=== PATIENT | female | born 1985 | race Caucasian/White ===

== ENCOUNTER 2023-01-15 11:42 | Emergency (ER) | payer MEDICARE, MEDICAID, SELFPAY ==
[2023-01-15 11:44] VITALS: BP 101/73; PULSE 66; RESP 18; TEMP 36.4; O2SAT 97; BMI 27.4
--- NOTE | 2023-01-15 11:55 | CT_ITS ---
WS: [id number] CT HEAD TECHNIQUE: Noncontrast CT of the head obtained from the skullbase to the vertex. CLINICAL INFORMATION: Altered LOC COMPARISON: None. DLP: 2022.[address] scans at [facility] use at least one of these dose optimization techniques: automated e xposure control; mA and/or kV adjustment per patient size (includes targeted exams where dose is matc hed to clinical indication); or iterative reconstruction. FINDINGS: No evidence of intracranial hemorrhage or mass effect. Ventricular system and basal cisterns are singh nt. No extra-axial fluid collections. No evidence of mass or mass effect. Normal lemons-white different iation. Paranasal sinuses and mastoid air cells are well aerated. .Normal visualized soft tissues. IMPRESSION: 1. No evidence of intracranial hemorrhage or mass effect. 2. No acute intracranial findings.
--- NOTE | 2023-01-15 11:56 | PC.PHAR ---
pt unable to verify due to ams
[2023-01-15 12:15] LABS: Basophils # 0.1 10^3/uL (0.0-0.1); Basophils % 0.6 %; Eosinophils # 0.2 10^3/uL (0.0-0.8); Eosinophils % 1.9 %; Hematocrit 35.4 % (36-47); Lymphocytes # 1.8 10^3/uL (0.8-4.8); Lymphocytes % 21.2 %; Mean Corpuscular HGB Conc 32.5 g/dL (30-55); Mean Corpuscular Hemoglobin 29.9 pg (27-33); Mean Corpuscular Volume 92.2 fl (85-98); Mean Platelet Volume 9.8 fL (7.4-10.4); Monocytes # 0.7 10^3/uL (0.2-0.9); Monocytes % 8.3 %; Neutrophils # 5.61 10^3/uL (1.8-7.7); Neutrophils % 67.9 %; Nucleated Red Blood Cells % 0 %; Platelet Count 357 10^3/cmm (157-399); Red Blood Count 3.84 10^6/uL (3.85-5.65); Red Cell Distribution Width 12.6 % (12.1-15.1); White Blood Count 8.27 10^3/uL (3.29-11.43)
[2023-01-15 12:28] LABS: Alanine Aminotransferase 13 U/L (0-33); Albumin Level 3.6 g/dL (3.5-5.2); Alkaline Phosphatase 65 U/L (35-105); Anion Gap 15.8 (5-19); Aspartate Amino Transferase 12 U/L (0-32); Blood Urea Nitrogen 12 mg/dL (6-20); Calcium 9.1 mg/dL (8.5-10.5); Carbon Dioxide 22 mmol/L (22-29); Chloride 109 mmol/L (98-107); Globulin 2.6 g/dL (1.3-4.6); Glomerular Filtration Rate 81.2 mL/min (90-130); Glucose 96 mg/dL (65-115); Osmolality Calculated 296 mOsm/kg (285-295); Potassium 3.8 mmol/L (3.5-5.1); Salicylate 0.7 mg/dL (3-10); Sodium 143 mmol/L (136-145); Total Bilirubin 0.2 mg/dL (0.15-1.2); Total Protein 6.2 g/dL (6.6-8.7)
[2023-01-15 12:30] LABS: Acetaminophen < 5.0 ug/mL (10-30); Alcohol Level < 10 mg/dL (0-10)
--- NOTE | 2023-01-15 12:35 | PC.NURSE ---
1000 ml bag of NS fluids started by EMS, I spoke with Dr. Seals and he said to just run those fluids wide open and give the patient the whole bag before starting what he ordered we would reassess the patient.
[2023-01-15 12:54] LABS: HCG Qualitative Urine. Negative (Negative)
[2023-01-15 13:23] LABS: Add Urine Microscopic? YES; Bilirubin Urine Neg (Negative); Blood Urine Neg (Negative); Glucose Urine UA Norm (Normal); Ketones Urine Negative (Negative); Leukocyte Esterase Urine 2+ (Negative); Nitrate Urine Negative (Negative); Protein Urine Neg (Negative); Urine Appearance Hazy (CLEAR); Urine Color Straw (Yellow); Urobilinogen Urine Neg (Negative); pH Urine 5 (5-7)
[2023-01-15 13:24] LABS: Add Urine Culture? Yes; Bacteria Urine 1+ /hpf; RBC Urine 0-4 /hpf (0-2); Squamous Epithelial Cell Urine 0-4 /hpf (0-5); WBC Urine 15-25 /hpf (0-5)
[2023-01-15 13:33] LABS: Amphetamines Screen Urine Negative (Negative); Barbiturates Screen Urine Negative (Negative); Benzodiazepines Screen Urine Negative (Negative); Cocaine Screen Urine Negative (Negative); Opiate Screen Urine Negative (Negative); PCP Screen Urine Negative (Negative); THC Screen Urine Positive (Negative)
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
== END 2023-01-15 14:17 | disposition home or self-care (01) ==
PROVIDERS: Emergency Provider Emergency Medicine
DX: R41.82 Altered mental status, unspecified (principal); T42.6X5A Adverse effect of other antiepileptic and sedative-hypnotic drugs, initial encounter
CPT/HCPCS: 36415; 70450; 80053; 80306; 80307; 81001; 81025; 85025; 87086; 99284

== ENCOUNTER 2023-04-21 10:10 | Emergency (ER) | payer MEDICARE, MEDICAID, SELFPAY ==
[2023-04-21 10:17] VITALS: BP 139/87; PULSE 93; RESP 16; TEMP 36.7; O2SAT 97; BMI 34.0
--- NOTE | 2023-04-21 10:32 | ED_ITS ---
HPI - Extremity Problem General: Chief complaint: Extremity Injury, Lower Stated complaint: right knee pain Time Seen by Provider: 04/21/23 10:13 History of Present Illness: 37 F female who presents with right knee pain. The patient states she has had numerous knee surgeries completed, last was March of this past year, all of her surgeries were done in [place]. Patient moved here 5 months ago and has not establish care with a primary care provider or an orthopedic surgeon. She states over the past 2 days, she has had increasing pain in the right knee. She has been having to wear her knee brace again because her knee feels unstable and she feels as if something came undone inside the knee. She has had both ACL and PCL repair as well as patellar repair. She denies any falls or any acute trauma. She states the pain is severe. MD Complaint: extremity pain Associated symptoms: Deny fever(s) Review of Systems General: Reports: Other (negative except per HPI) Const: Denies: fever(s) Physical Exam Const: COMMON NORMALS: no acute distress GENERAL APPEARANCE: cooperative and well developed HENMT: COMMON NORMALS: normocephalic HEAD & SCALP: normocephalic Eye: COMMON NORMALS: conjunctivae normal CONJUNCTIVA: Yes conjunctivae normal Extremity: RIGHT LOWER EXTREMITY: Yes knee joint (multiple scars on right knee; no significant swelling or deformity) Right knee: Yes inspection OTHER: bruising over the lateral proximal tibial plateau region. Patellar tendon is intact. Medial and lateral stability intact. Patient is unable to tolerate anterior drawer or posterior drawer sign due to discomfort. No significant joint effusion. Course Vital Signs: Vital signs: Vital Signs Temperature 98.0 F 04/21/23 10:17 Pulse Rate 93 04/21/23 10:17 Respiratory Rate 16 04/21/23 10:17 Blood Pressure 139/87 04/21/23 10:17 Pulse Oximetry 97 04/21/23 10:17 MDM - Extremity (Nontraumatic) Medical Decision Making Patient presents with right knee pain, atraumatic but she has had numerous knee surgeries, the last being over a year ago. Do not feel that the patient would benefit from x-rays today as this is most likely an internal derangement type injury. Patellar tendon is intact. There is no significant deformity. Feel the patient will need orthopedic surgery follow-up with elective MRI as an outpatient. No radiology studies performed this visit Discharge Plan Discharge Patient Disposition: Home Clinical Impression: Chronic pain of right knee Condition: Stable Prescriptions: New hydrocodone-acetaminophen 5-325 mg tablet 1 tab PO Q4H PRN (Reason: pain) Qty: 14 0RF Anaprox DS 550 mg tablet 550 mg PO Q12H Qty: 30 0RF Discharge Orders: Discharge ED (Routine); Ordered 04/21/23 Ordered By: Oriana Bradshaw Referrals: Raimundo Brewster DO [Physician] - 4-7 days Discharge Diet: Advance as tolerated Discharge Activity: Increase activity as tolerated Patient Instructions: Opioid Safety, Pain Management Activity Restrictions/Additional Instructions: Wear your brace as needed. Ice to the affected area and keep your leg elevated to minimize the swelling. Take Anaprox twice daily. You can take the [place] every 4-6 hours as needed for severe pain. Return if you are having increased pain, weakness, numbness. Follow-up first available with the orthopedic surgeon. Coding Level of Care Code ED [place] Tower Loader for Fahadg Fwafzal Time Spent (min) 20
[2023-04-21] MEDS: HYDROcodone-acetaminophen 10-325 mg Tablet 1 TAB PO (10:36)
--- NOTE | 2023-04-21 10:54 | PC.PHAR ---
[facility]-AMLODIPINE 5 MG DAILY, VALSARTAN/HCTZ 160-25 DAILY. [facility] GABAPENTIN 600 MG 4 TIMES DAILY, CLONAZEPAM 0.5MG 3 TIMES DAILY, AMBIEN 10 MG AT BEDTIME, PHENTERMINE 37.5MG DAILY, ALBUTEROL INH. EVERY 6 HOURS PRN. BOTH PHARMACIES IN [facility]
--- NOTE | 2023-04-21 13:45 | W.ED.EXTPRO ---
HPI - Extremity Problem General: Chief complaint: Extremity Injury, Lower Stated complaint: right knee pain Time Seen by Provider: 04/21/23 10:13 History of Present Illness: duplicate document; please see other Course Vital Signs: Vital signs: Vital Signs Temperature 98.0 F 04/21/23 10:17 Pulse Rate 93 04/21/23 10:17 Respiratory Rate 16 04/21/23 10:17 Blood Pressure 139/87 04/21/23 10:17 Pulse Oximetry 97 04/21/23 10:17 MDM - Extremity (Nontraumatic) Medical Decision Making please see other documen No radiology studies performed this visit Discharge Plan Discharge Patient Disposition: Home Clinical Impression: Chronic pain of right knee Condition: Stable Prescriptions: New hydrocodone-acetaminophen 5-325 mg tablet 1 tab PO Q4H PRN (Reason: pain) Qty: 14 0RF Anaprox DS 550 mg tablet 550 mg PO Q12H Qty: 30 0RF hydrocodone-acetaminophen 5-300 mg tablet 1 tab PO Q4H PRN (Reason: pain) Qty: 14 0RF Anaprox DS 550 mg tablet 550 mg PO Q12H Qty: 30 0RF No Action gabapentin 600 mg Tablet 600 mg PO QID clonazepam 0.5 mg Tablet 0.5 mg PO TID phentermine 37.5 mg Tablet 18.75 mg PO DAILY Rx Instructions: must administer 30 minutes before or 1-2 hours after breakfast amlodipine 5 mg Tablet 5 mg PO DAILY Ambien 10 mg Tablet 10 mg PO BEDTIME albuterol sulfate 90 mcg/actuation Hfa Aerosol Inhaler 1 inh INHALATION QID PRN (Reason: Shortness Of Breath) valsartan-hydrochlorothiazide 160-25 mg Tablet 1 tab PO DAILY Discharge Orders: Discharge ED (Routine); Ordered 04/21/23 Ordered By: Oriana Bradshaw Referrals: Raimundo Brewster DO [Physician] - 4-7 days Discharge Diet: Advance as tolerated Discharge Activity: Increase activity as tolerated Patient Instructions: Opioid Safety, Pain Management Activity Restrictions/Additional Instructions: Wear your brace as needed. Ice to the affected area and keep your leg elevated to minimize the swelling. Take Anaprox twice daily. You can take the [place] every 4-6 hours as needed for severe pain. Return if you are having increased pain, weakness, numbness. Follow-up first available with the orthopedic surgeon. Coding Level of Care Code ED Supervisor Real Estate Office for Chuyita Olivas
== END 2023-04-21 10:47 | disposition home or self-care (01) ==
PROVIDERS: Emergency Provider Emergency Medicine
DX: G89.29 Other chronic pain (principal); M25.561 Pain in right knee
CPT/HCPCS: 99283

== ENCOUNTER 2023-05-21 13:05 | Emergency (ER) | payer MEDICARE, MEDICAID, SELFPAY ==
[2023-05-21 13:09] VITALS: BP 118/86; PULSE 71; RESP 18; TEMP 36.5; O2SAT 100
--- NOTE | 2023-05-21 14:04 | XR_ITS ---
WS: [id number] Right foot, 3 views, 05/21/2023 Clinical Data: fall/trauma Comparison: None. Findings: No fractures or dislocations are seen. No bone destruction or erosion is noted. The joint spaces and soft tissues are normal. Impression: Negative right foot.
--- NOTE | 2023-05-21 14:04 | XR_ITS ---
WS: [id number] Right knee, 3 views, 05/21/2023 Clinical Data: fall/trauma Comparison: None. Findings: No fractures or dislocations are seen. The medial and lateral joint spaces are slightly narrow. There is a spur of the medial femoral condyle and medial tibial plateau. The patella is intact without spu rring. The soft tissues are unremarkable. There is an anterior cruciate ligament repair. Impression: 1. Minimal osteoarthritis of the right knee with joint space narrowing and small spurs. 2. Anterior cruciate ligament repair. Kellgren-Elvin Classification: grade 2 (minimal): definite osteophytes and possible joint space na rrowing
--- NOTE | 2023-05-21 14:05 | ED_ITS ---
HPI - Extremity Injury (Lower) General: Chief Complaint: Extremity Injury, Lower Stated Complaint: Right Knee Time Seen by Provider: 05/21/23 13:46 Source: patient Mode of arrival: ambulatory Limitations: no limitations History of Present Illness: Patient is a 37-year-old female presents to ED today with a complaint of right knee and right foot pain that she sustained 2 days ago after tripping over her dog and ramming the knee into a cement block. She is ambulatory here without assistance. She does have a knee immobilizer on the right knee. She reports 7 previous knee surgeries for internal derangement injuries. MD complaint: knee injury Onset (ago): day(s) Injury: Right: knee and foot Place: home Severity: moderate Relieving factors: immobilization Exacerbating factors: weight bearing, movement and palpation Context: fall and direct blow Associated symptoms: Reports no associated symptoms Other symptoms: none Treatments prior to arrival: other (knee immobilizer) Review of Systems Musc: Reports: joint pain (R knee, R foot); Denies: neck pain, back pain, joint redness or joint warmth Neuro: Denies: numbness in extremities, weakness in extremities, sensory changes or difficulty walking [facility] ED Female Reproductive History: Date of last menstrual period: 04/16/23 Physical Exam Const: COMMON NORMALS: no acute distress, patient oriented x3, no limitations, alert and well nourished Extremity: COMMON NORMALS: capillary refill normal, no clubbing, cyanosis or edema, no calf tenderness and no pedal edema GENERAL: Yes normal exam except as noted RIGHT LOWER EXTREMITY: Yes knee joint (TTP anterior lateral knee joint; edema) Right knee: Yes ROM (limited secondary to pain) and Yes neurovascular exam (normal) and Yes foot & digits Right foot and digits: Yes inspection (normal gross inspection), Yes palpation (mild tenderness medially), Yes ROM (normal) and Yes neurovascular exam (normal) Neuro: COMMON NORMALS: patient oriented x3, moves all extremities, no focal motor deficits, no sensory deficits noted and gait normal SENSORIUM/ORIENTATION: Yes alert Course Vital Signs: Vital signs: Vital Signs Temperature 97.7 F 05/21/23 13:09 Pulse Rate 71 05/21/23 13:09 Respiratory Rate 18 05/21/23 13:09 Blood Pressure 118/86 05/21/23 13:09 Pulse Oximetry 100 05/21/23 13:09 Oxygen Delivery Me thod Room Air 05/21/23 13:09 MDM - Extremity Injury (Lower) Medical Decision Making XRs negative. She is requesting a primary care referral for follow-up. This will be provided. She already has a knee immobilizer she can wear as needed. She has crutches at home. Recommend RICE therapy. Will prescribe her anti- inflammatories. Medical Records I reviewed the patient's medical records. All radiology interpretation(s) finalized by discharge Discharge Plan Discharge Patient Disposition: Home Clinical Impression: Fall on same level from tripping, Injury of knee, right Condition: Stable Prescriptions: New diclofenac sodium 50 mg tablet,delayed release (DR/EC) 50 mg PO Q12H PRN (Reason: pain) Qty: 20 0RF Discontinued naproxen sodium [Anaprox DS] 550 mg tablet 550 mg PO Q12H Qty: 30 0RF No Action hydrocodone-acetaminophen 5-325 mg tablet 1 tab PO Q4H PRN (Reason: pain) Qty: 14 0RF Anaprox DS 550 mg tablet 550 mg PO Q12H Qty: 30 0RF gabapentin 600 mg Tablet 600 mg PO QID clonazepam 0.5 mg Tablet 0.5 mg PO TID phentermine 37.5 mg Tablet 18.75 mg PO DAILY Rx Instructions: must administer 30 minutes before or 1-2 hours after breakfast amlodipine 5 mg Tablet 5 mg PO DAILY Ambien 10 mg Tablet 10 mg PO BEDTIME albuterol sulfate 90 mcg/actuation Hfa Aerosol Inhaler 1 inh INHALATION QID PRN (Reason: Shortness Of Breath) valsartan-hydrochlorothiazide 160-25 mg Tablet 1 tab PO DAILY hydrocodone-acetaminophen 5-300 mg tablet 1 tab PO Q4H PRN (Reason: pain) Qty: 14 0RF Discharge Orders: Discharge ED (Routine); Ordered 05/21/23 Ordered By: Skylar Gaines Activity Restrictions/Additional Instructions: As we discussed you can continue wearing your knee brace. Crutches as needed for ambulation. Ice and elevate the extremity. We will have case management reach out to you next week to help set you up with your follow-up appointment. You may use the prescription anti-inflammatories to help with pain. Coding Level of Care Code ED Durable Medical Equipment Repairer for Chuyita Olivas
[2023-05-21 14:53] VITALS: BP 128/84; PULSE 77; RESP 16; O2SAT 96
== END 2023-05-21 14:53 | disposition home or self-care (01) ==
PROVIDERS: Emergency Provider Physician Assistant
DX: S89.91XA Unspecified injury of right lower leg, initial encounter (principal); W01.0XXA Fall on same level from slipping, tripping and stumbling without subsequent striking against object, initial encounter
CPT/HCPCS: 73562; 73630; 99283

== ENCOUNTER → 2024-03-17 12:09 | Outpatient (BNVA) | payer MEDICARE, MEDICAID, SELFPAY | PROVIDERS: PCP Family Medicine Adult Medicine; Visit Provider Registered Nurse Neonatal Intensive Care | DX: M25.561 Pain in right knee (principal) | CPT/HCPCS: 73562 ==

== ENCOUNTER → 2024-03-27 13:03 | Outpatient (BNVA) | payer MEDICARE, MEDICAID, SELFPAY | PROVIDERS: PCP Family Medicine Adult Medicine; Visit Provider Emergency Medicine | DX: R50.9 Fever, unspecified (principal) | CPT/HCPCS: 87400 ==

== ENCOUNTER → 2024-05-16 09:00 | Outpatient (BNVA) | payer MEDICARE, MEDICAID, SELFPAY | PROVIDERS: PCP Family Medicine; Visit Provider Family Medicine | DX: I10 Essential (primary) hypertension (principal); M17.5 Other unilateral secondary osteoarthritis of knee; G62.9 Polyneuropathy, unspecified; E66.9 Obesity, unspecified; F41.9 Anxiety disorder, unspecified; F32.A Depression, unspecified | CPT/HCPCS: 80053; 80061; 82607; 84443; 85025 ==

== ENCOUNTER 2024-06-18 13:04 | Emergency (ER) | payer MEDICARE, MEDICAID, SELFPAY ==
[2024-06-18 13:08] VITALS: BP 122/86; PULSE 78; TEMP 37; O2SAT 97; BMI 37.8
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
[2024-06-18] MEDS: dexamethasone 10 mg/mL INJ IM (14:25)
[2024-06-18 14:36] VITALS: BP 108/60; PULSE 72; O2SAT 98
--- NOTE | 2024-06-18 14:36 | ECG_ITS ---
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 Measurements Intervals [place] Rate: 82 P: 49 RI: 141 QRS: 43 QRSD: 86 T: 9 QT: 372 QTc: 437 Interpretive Statements SINUS RHYTHM INTERPRETATION BASED ON A DEFAULT AGE OF 40 YEARS No previous ECG available for comparison Electronically Signed On 06-19-2024 18:51:51 CDT by Piper Savage M.D. [email or web address]
== END 2024-06-18 14:36 | disposition home or self-care (01) ==
PROVIDERS: Emergency Provider Emergency Medicine; PCP Family Medicine
DX: S40.861A Insect bite (nonvenomous) of right upper arm, initial encounter (principal); W57.XXXA Bitten or stung by nonvenomous insect and other nonvenomous arthropods, initial encounter; I10 Essential (primary) hypertension; F17.220 Nicotine dependence, chewing tobacco, uncomplicated
CPT/HCPCS: 93005; 96372; 99284; J1100

== ENCOUNTER → 2024-08-22 11:39 | Outpatient (BNVA) | payer MEDICARE, MEDICAID, SELFPAY | PROVIDERS: PCP Family Medicine; Visit Provider Family Medicine | DX: Z12.4 Encounter for screening for malignant neoplasm of cervix (principal); Z72.51 High risk heterosexual behavior | CPT/HCPCS: 87491; 87591; 87661 ==

== ENCOUNTER → 2024-09-11 16:36 | Outpatient (BNVA) | payer MEDICARE, MEDICAID, SELFPAY | PROVIDERS: PCP Family Medicine; Visit Provider Family Medicine | DX: R10.11 Right upper quadrant pain (principal); R50.9 Fever, unspecified | CPT/HCPCS: 80053; 85025 ==

== ENCOUNTER 2024-09-21 07:51 | Outpatient (CLI) | payer MEDICARE, MEDICAID, SELFPAY ==
--- NOTE | 2024-09-21 07:45 | US_ITS ---
WS: [id number] RIGHT UPPER QUADRANT ULTRASOUND HISTORY: RUQ abd pain/n/v/d; r/o cholecystitis COMPARISON: None available. Liver: 14.9 cm in length. Normal size liver and echogenicity. No bile duct dilatation or mass. Portal Vein: Normal hepatopetal flow with monophasic waveform. Gallbladder: Normally distended gallbladder with no stones or wall thickening. CBD: 0.5 cm Pancreas: Limited visualization of the pancreas. No abnormality identified. Right kidney: 9.4 cm in length. Normal size and echogenicity. No hydronephrosis or mass. Aorta and IVC: Unremarkable abdominal aorta and IVC. No ascites. US/US abdomen limited 62413 IMPRESSION: 1. Normal gallbladder. 2. Normal common bile duct. 3. No acute RIGHT upper quadrant abnormality.
== END 2024-09-21 07:52 | disposition home or self-care (01) ==
LOC: RAD 07:51
PROVIDERS: PCP Family Medicine; Visit Provider Family Medicine
DX: R10.11 Right upper quadrant pain (principal)
CPT/HCPCS: 76705

== ENCOUNTER 2024-10-11 20:09 | Emergency (ER) | payer MEDICARE, MEDICAID, SELFPAY ==
[2024-10-11] VITALS (7 sets, daily range): BP systolic 101–130; BP diastolic 81–86; PULSE 85–120; RESP 22; TEMP 36.7; O2SAT 96–100; BMI 36.6
--- NOTE | 2024-10-11 20:50 | CTR_ITS ---
PROCEDURE INFORMATION: Exam: CT Abdomen And Pelvis With Contrast Exam date and time: 10/11/2024 10:24 PM Age: 39 years old Clinical indication: Abdominal pain; Flank; Right TECHNIQUE: Imaging protocol: Computed tomography of the abdomen and pelvis with contrast. Radiation optimization: All CT scans at this facility use at least one of these dose optimization techniques: automated exposure control; mA and/or kV adjustment per patient size (includes targeted exams where dose is matched to clinical indication); or iterative reconstruction. Contrast material: OMNI 350; Contrast volume: 100 ml; Contrast route: INTRAVENOUS (IV); COMPARISON: US abdomen limited 62413 09/21/2024 8:04 AM RADIATION DOSE METRICS: Total DLP (mGy-cm): 821.55 FINDINGS: Liver: Normal. No mass. Gallbladder and biliary ducts: Normal. No calcified stones. No ductal dilation. Pancreas: Normal. No ductal dilation. Spleen: Calcified splenic granulomas. The spleen measures 14.2 cm AP. Adrenal glands: Normal. No mass. Kidneys and ureters: Normal. No hydronephrosis. Stomach and bowel: Sigmoid diverticulosis without evidence of acute diverticulitis. No evidence of bowel obstruction. Appendix: No evidence of appendicitis. Intraperitoneal space: Unremarkable. No free air. No significant fluid collection. Vasculature: Unremarkable. No abdominal aortic aneurysm. Lymph nodes: Unremarkable. No enlarged lymph nodes. Urinary bladder: Unremarkable as visualized. Reproductive: Likely involuting corpus luteum in the left ovary. Uterus is unremarkable. No suspicious adnexal mass. Bones/joints: Unremarkable. No acute fracture. Soft tissues: Unremarkable. CT/CT abdomen pelvis w con* [id number] IMPRESSION: 1. No acute findings. 2. Splenomegaly. 3. Sigmoid diverticulosis without diverticulitis.
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
[2024-10-11] MEDS: ondansetron 2 mg/ML SDV 2 mL 8 MG IVP (21:10)
[2024-10-11] MEDS: HYDROmorphone 0.5 MG/0.5 ML INJ 1 MG IVP (21:11)
[2024-10-11 21:19] LABS: Hematocrit 38.2 % (36-47); Hemoglobin 13.20 g/dL (11.27-16.99); Mean Corpuscular HGB Conc 34.6 g/dL (30-55); Mean Corpuscular Hemoglobin 29.2 pg (27-33); Mean Corpuscular Volume 84.5 fl (85-98); Nucleated Red Blood Cells % 0 %; Platelet Count 408 10^3/cmm (157-399); Red Blood Count 4.52 10^6/uL (3.85-5.65); White Blood Count 11.55 10^3/uL (3.29-11.43)
[2024-10-11 21:34] LABS: Glucose Urine UA Negative (Normal); Nitrate Urine Negative (Negative); Specific Gravity, Urine 1.012 (1.005-1.030)
[2024-10-11 21:36] LABS: Alanine Aminotransferase 15 U/L (0-33); Albumin Level 4.0 g/dL (3.5-5.2); Alkaline Phosphatase 77 U/L (35-105); Anion Gap 16.6 (5-19); Aspartate Amino Transferase 20 U/L (0-32); Blood Urea Nitrogen 14 mg/dL (6-20); Calcium 9.4 mg/dL (8.5-10.5); Carbon Dioxide 24 mmol/L (22-29); Chloride 101 mmol/L (98-107); Creatinine Clr Calc Pharmacy 99.8664; Globulin 3.1 g/dL (1.3-4.6); Glucose 112 mg/dL (65-115); Lipase 15 U/L (13-60); Osmolality Calculated 287 mOsm/kg (285-295); Potassium 3.6 mmol/L (3.5-5.1); Sodium 138 mmol/L (136-145); Total Protein 7.1 g/dL (6.6-8.7)
[2024-10-11 21:37] LABS: Lactic Sepsis W/Reflex 1.4 mmol/L (0.5-2.2)
[2024-10-11 21:41] LABS: HCG, Serum Qual Negative (Negative)
[2024-10-11] MEDS: iohexol 350 mg/mL 500 mL Btl (per mL) IV (22:25)
--- OUTSIDE RECORDS SUMMARY | 2024-10-11 23:06 | XMS_ITS | Encounter Summary ---
Author Organization [facility] Address [address] [place] [address] Care Team Providers Care Global Program Director Name Role Phone Ramirez Samayoa MD Primary Care Provider + Encounter Details Date Type Department Care Team (Late st Contact Info) Description 10/03/2024 External Device Data [place] ABSTRACTION Provider, Abstract NO ADDRESS ON FILE Social History Tobacco Use Types Packs/Day Years Used Date Smoking Tobacco: Never Smokeless Tobacco: Current Chew Comments Unknown Sex and Gender Information Value Date Recorded Sex Assigned at Not on file Legal Sex Female 9:30 AM CDT Gender Identity Not on file Sexual Orientation Not on file documented as of this encounter Plan of Treatment Not on file documented as of this encounter Visit Diagnoses Not on filedocumented in this encounter Care Teams Global Program Director Relationship Specialty Start Date End Date Ramirez Samayoa MD [address] [place] [phone] PCP - General Family Practice 08/12/23 documented as of this encounter
--- OUTSIDE RECORDS SUMMARY | 2024-10-11 23:06 | XMS_ITS | Clinical Summary ---
Author Organization [facility] Address [address] [place] [address] Phone Care Team Providers Care Ordnance Engineering Technician Name Role Phone Ramirez Samayoa MD Primary Care Provider + Allergies Active Allergy Reactions Criticality Noted Date Comments Ciprofloxacin Anaphylaxis High 07/12/2023 Diclofenac Other (See Comments) 07/12/2023 Reaction to other medication Medications amLODIPine (NORVASC) 10 mg tablet Take 10 mg by mouth daily. Active gabapentin (NEURONTIN) 400 mg capsule Take 400 mg by mouth 3 times daily. Active clonazePAM (KlonoPIN) 0.5 mg Tablet Take 0.5 mg by mouth 2 times daily. Active albuterol (PROVENTIL,VENTOL IN) 2.5 mg/0.5 mL Solution for Nebulization Take 2.5 mg by inhalation every 4 hours as needed for Shortness of Breath. Active valsartan-hydroCH LOROthiazide (DIOVAN HCT) 160-25 mg tablet Take 1 Tablet by mouth daily. for blood pressure 4 Active EPINEPHrine (EPIPEN) 0.3 mg/0.3 mL Auto-Injector 4 Active azelastine (ASTELIN) 137 mcg/actuation nasal spray SPRAY TWO SPRAYS in each nostril TWICE DAILY NEEDED allergies/edgar estion. 4 Active Miscellaneous Medical Supply Functional ACL brace 1 Each 4 Active traMADoL (ULTRAM) 50 mg tabletIndications :Arthritis of right knee Take 1 Tablet (50 mg) by mouth every 6 hours as needed for Pain. 15 Tablet 4 Active Active Problems No known active problems Encounters Date Type Department Care Team Description 10/03/2024 External Device Data [facility] ABSTRACTION Provider, Abstract 09/13/2024 External Device Data [facility] Provider, Abstract 09/13/2024 External Device Data [facility] Provider, Abstract 08/22/2024 External Device Data [facility] Provider, Abstract 08/15/2024 External Device Data [facility] Provider, Abstract 07/25/2024 External Device Data [facility]STRACTION Provider, Abstract 07/19/2024 External Device Data [facility]STRACTION Provider, Abstract 07/18/2024 External Device Data [facility] ABSTRACTION Provider, Abstract from Last 3 Months Social History Tobacco Use Types Packs/Day Years Used Date Smoking Tobacco: Never Smokeless Tobacco: Current Chew Tobacco Cessation:Ready to Q uit: Not Asked; Counseling Given: Not Answered Comments Unknown Sex and Gender Information Value Date Recorded Sex Assigned at Not on file Legal Sex Female 9:30 AM CDT Gender Identity Not on file Sexual Orientation Not on file Last Filed Vital Signs Vital Sign Reading Time Taken Comments Blood Pressure 132/92 10/12/2023 9:38 AM CDT Pulse - - Temperature - - Respiratory Rate - - Oxygen Saturation - - Inhaled Oxygen Concentration - - Weight 94.7 kg (208 lb 12.8 oz) 10/12/2023 9:38 AM CDT Height 157.5 cm (5' 2 ) 10/12/2023 9:38 AM CDT Body Mass Index 38.19 10/12/2023 9:38 AM CDT Plan of Treatment Health Maintenance Due Date Last Done Comments Pre-Diabetes and Diabetes Screening 1986 HPV VACCINES (1 - 3-dose series) 2001 DTAP/TDAP/TD VACCINES (1 - Tdap) 2005 HEPATITIS B VACCINES (1 of 3 - 19+ 3-dose series) 05/31 HPV/Cotest (21-29) 06/27/2007 CERVICAL CANCER SCREENING 2016 HPV/Cotest (30-65) 2016 PAP SMEAR 2016 INFLUENZA VACCINE (#1) 2024 Insurance MEDICAID [place] MEDICARE PART A AND B Care Teams Ordnance Engineering Technician Relationship Specialty Start Date End Date Ramirez Samayoa MD [address] [facility] [address] [place] [id number] PCP - General Family Practice 08/12/23
--- OUTSIDE RECORDS SUMMARY | 2024-10-11 23:06 | XMS_ITS | Patient Health Record ---
Author Organization [facility] Address [address] [facility] [address] [place] [address] Care Team Providers Care Greige Goods Marker Name Role Phone MELIA FENG APN Primary Care Provider Magalie Sharma Unavailable [phone] Allergies Allergen (clinical drug ingredient) Drug/Non Drug Allergy documented on EMR Reaction Allergy Type Onset Date Status ciprofloxacin Cipro Unknown Drug Allergy Act sofía Reason For Referral No Information Medications Medication SIG (Take, Route, Frequency, Duration) Notes Start Date End Date Status clonazePAM Active Gabapentin Active Effexor Active Problems Problem Type SNOMED Code ICD Code Onset Dates Problem Status W/U Status Risk Notes Problem Irregular menstrual bleeding (N92.6) Active confirmed Plan Of Treatment No Information Insurance Providers Payer Name Payer Address Payer Phone Subscriber Number Group Number Insured Name Patient Relationship to Insured Coverage Start Date Coverage End Date [place]ST[place] [employer]EVEN CR[employer] OF STATE BLUE [address] [place] [address] [id number] No Pineda Self - patient is the insured Medical (General) History Medical History History ICD Code Anxiety disorder Depression back problems Surgical History Surgery Date(Month/Year) right knee arthroscopy x2
[2024-10-11] MEDS: HYDROcodone-acetaminophen 10-325 mg Tablet 1 TAB PO (23:08)
== END 2024-10-11 23:13 | disposition home or self-care (01) ==
PROVIDERS: Emergency Provider Emergency Medicine; PCP Family Medicine
DX: R10.9 Unspecified abdominal pain (principal); F17.220 Nicotine dependence, chewing tobacco, uncomplicated; I10 Essential (primary) hypertension
CPT/HCPCS: 36415; 74177; 80053; 81001; 83605; 83690; 84703; 85025; 86140; 87040; 96361; 96374; 96375; 99285; J1171; J2405; J7030; J9999

== ENCOUNTER 2024-10-18 07:21 | Outpatient (CLI) | payer MEDICARE, MEDICAID, SELFPAY ==
--- NOTE | 2024-10-18 07:40 | ECG_ITS ---
[facility]: 2024-10[facility]18 Pat Name: No Pineda Department: Room: Gender: Female Psychiatric Therapist: : 1985 Requested By: Noni Holden Order Number: [id number] Wilma MD: SARAH SIMON Interpretive Statements Lung unchanged pre/post procedure; Intraprocedure shortess of breath; Symptoms resoled by discharge NOTE: Please note that this is the electrocardiogram portion of the Lexiscan/Sestamibi stress test. The perfusion scan will be documented separately. DATA: Baseline heart rate was 59 beats per minute. Baseline blood pressure was 109/64 millimeters of mercury. Target heart rate was 182. Maximum heart rate achieved was 99. which was 54% of the predicted target heart rate. Maximum blood pressure was 112/70 millimeters of mercury. The reason for ending the test was completion of the protocol. The patient did not experience any symptoms. ELECTROCARDIOGRAM: BASELINE: Sinus rhythm. Normal axis. Otherwise, no ST-T changes suggestive of ischemia noted. No arrhythmia noted. EXERCISE: After Lexiscan injection, no ST-T changes suggestive of ischemic noted. No arrhythmia noted. CONCLUSION: Please note due to baseline abnormality of the EKG specificity and sensitivity of the EKG portion of LexiScan MIBI stress test will be low 1. EKG not suggestive of ischemia 2. Lexiscan injection unremarkable. 3. Perfusion scan will be documented separately. Electronically Signed On 11-11-2024 13:58:33 CDT by SARAH SIMON [email or web address]
--- NOTE | 2024-10-18 07:40 | NMCV_ITS ---
NM marleny perf SPECT r/s* [id number] White, No Age: 39 Gender: F : 1985 Exam Date: 10/18/2024 08:33 Ordering Phys: Noni Johnson MD Technologist: MARTINE Bernard Exam Location: [facility] Indications: cp STRESS TEST Please see separate stress test report in [facility] for full findings IMAGE PROTOCOL Rest/Stress 1 Lexiscan Day Radiopharmaceutical Dose (mCi) Administration Site Administered by Rest: Tc-99m 10.9 IV Coty Bolanos, GRAVE CLEANER Sestamibi Stress:Tc-99m 32.6 IV Coty Harrygle, GRAVE CLEANER Sestamibi Rest: 18-Oct-2024 60 Discovery 630 Stress: 18-Oct-2024 30 Discovery 630 0.4mg Lexiscan. Images obtained in supine and prone position. SPECT RESULTS Technical Quality: Good Raw Data Analysis: Normal Image Corrections: No attenuation or motion correction applied Summed Stress Score: 0 Summed Rest Score: 0 Summed Difference Score: 0 PERFUSION FINDINGS SPECT images demonstrate homogeneous tracer distribution throughout the myocardium. FUNCTIONAL RESULTS (calculated via Gated SPECT) Stress Image LV EF (%): 71 Stress EDV (mL):87 TID: 1.35 Stress ESV (mL):25 FUNCTIONAL FINDINGS: There is normal left ventricular systolic function. TID ratio is elevated which could be secondary to left ventricular hypertrophy/subendocardial ischemia however cannot rule out multivessel disease which could be option in the presence of increased TID IMPRESSIONS Myocardial perfusion imaging is normal. Kimberly Zapata MD (Electronically Signed) Final Date: 18 October 2024 12:40 S
[2024-10-18 07:41] VITALS: BMI 36.2
--- NOTE | 2024-10-18 07:42 | PC.NURSE ---
The patient does not have a history of hysterectomy or tubal and is having normal periods every 28-30 days. When asked if she agreed to a test she stated that she is lesbian and would rather not . She did agree to sign a test declination waiver. This was sent to medical records to be scanned in.
[2024-10-18 09:10] VITALS: BP 106/70; PULSE 76
== END 2024-10-18 07:22 | disposition home or self-care (01) ==
LOC: CDL 07:25
PROVIDERS: PCP Family Medicine; Visit Provider Family Medicine
DX: R07.9 Chest pain, unspecified (principal); R93.1 Abnormal findings on diagnostic imaging of heart and coronary circulation
CPT/HCPCS: 36415; 78452; 93017; 96374; A9500; J2785

== ENCOUNTER 2024-10-20 09:21 | Outpatient (CLI) | payer MEDICARE, MEDICAID, SELFPAY ==
--- NOTE | 2024-10-20 10:00 | NM_ITS ---
WS: [id number] NUCLEAR MEDICINE HIDA SCAN CLINICAL INFORMATION: RUQ abd pain; CT and US neg TECHNIQUE: Following intravenous administration of 8.6 mCi of technetium 99m mebrofenin, images of the abdomen were obtained over the course of 60 minutes. Next, gallbladder ejection fraction was determined by obtaining preprandial and one-hour postprandial images of the gallbladder following oral ingestion of Ensure. FINDINGS: Normal hepatic uptake at 5 minutes. Normal hepatic excretion. Normal common bile duct and small bowel activity. Small contracted gallbladder is visualized by 60 minutes. No evidence of acute cholecystitis. Ejection fraction not able to be calculated due to small contracted gallbladder NM/NM hepatobiliary w phar* [id number] IMPRESSION: 1. No evidence of acute cholecystitis. 2. Normal common bile duct and small bowel activity.
--- NOTE | 2024-10-20 11:46 | XRR_ITS ---
PROCEDURE INFORMATION: Exam: XR Thoracic Spine Exam date and time: 10/20/2024 11:57 AM Age: 39 years old Clinical indication: Pain in thoracic spine; Additional info: Back pain TECHNIQUE: Imaging protocol: Radiologic exam of the thoracic spine. Views: 3 views. COMPARISON: CT abdomen pelvis w con* [id number] 10/11/2024 10:24 PM FINDINGS: Bones/joints: Vertebral body heights, disc spaces and alignment appear normal. No fractures are identified. Soft tissues: Unremarkable. Heart/Mediastinum: Large calcified mediastinal lymph nodes are present. Paraspinal soft tissues otherwise are unremarkable. XR/XR thoracic spine 3V* [id number] IMPRESSION: No acute abnormality identified.
--- NOTE | 2024-10-20 11:46 | XRR_ITS ---
PROCEDURE INFORMATION: Exam: XR Lumbosacral Spine Exam date and time: 10/20/2024 11:57 AM Age: 39 years old Clinical indication: Low back pain TECHNIQUE: Imaging protocol: Radiologic exam of the lumbosacral spine. Views: 2 or 3 views. COMPARISON: CT abdomen pelvis w con* [id number] 10/11/2024 10:24 PM FINDINGS: Bones/joints: Normal. No acute fracture. Normal alignment. Soft tissues: Unremarkable. XR/XR lumbar spine 2-3V* [id number] IMPRESSION: No acute findings.
== END 2024-10-20 09:22 | disposition home or self-care (01) ==
LOC: RAD 09:23
PROVIDERS: PCP Family Medicine; Visit Provider Family Medicine
DX: M54.6 Pain in thoracic spine (principal); R10.11 Right upper quadrant pain; M54.50 Low back pain, unspecified
CPT/HCPCS: 72072; 72100; 78227; A9537

== ENCOUNTER → 2024-11-10 15:35 | Outpatient (BNVA) | payer MEDICARE, MEDICAID, SELFPAY | PROVIDERS: PCP Family Medicine; Visit Provider Family Medicine | DX: Z12.4 Encounter for screening for malignant neoplasm of cervix (principal) | CPT/HCPCS: 87624 ==

== ENCOUNTER → 2024-11-24 08:56 | Outpatient (BNVA) | payer MEDICARE, MEDICAID, SELFPAY | PROVIDERS: PCP Family Medicine; Visit Provider Student in an Organized Health Care Education/Training Program | DX: K21.9 Gastro-esophageal reflux disease without esophagitis (principal); R12 Heartburn | CPT/HCPCS: 99204 ==

== ENCOUNTER 2024-12-07 06:32 | Day surgery (SDC) | payer MEDICARE, MEDICAID, SELFPAY ==
[2024-12-07 06:50] VITALS: BP 129/82; PULSE 71; RESP 18; TEMP 36.2; O2SAT 96; BMI 34.5
[2024-12-07 06:56] LABS: OR HCG Qualitative Urine Negative (Negative)
--- NOTE | 2024-12-07 07:23 | W.PM.OPSUD ---
Surgery/Procedure H&P Update DATE OF PROCEDURE: December 07, 2024 DATE H&P PERFORMED: 11/24/24 H&P UPDATE INFORMATION: I have reviewed H&P completed within last 30 days, I have examined patient prior to procedure, No changes to prior documentation and Risks and benefits of the procedure reviewed PLANNED PROCEDURE: Operation Date: 12/07/24 08:00 Proposed Procedures p EGD EGD with Biopsy [id number] K21.9(Not Applicable) - Eber Jj MD
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
[2024-12-07 07:55] VITALS: BP 134/76; PULSE 79; RESP 18; TEMP 36.4; O2SAT 96
[2024-12-07 08:06] VITALS: BP 129/80; PULSE 61; RESP 16; O2SAT 96
[2024-12-07 08:15] VITALS: BP 120/76; PULSE 62; RESP 16; O2SAT 97
--- NOTE | 2024-12-07 08:23 | ANE.PACU2 ---
Inpatient post-anesthesia follow up: Airway intact: Yes Vital signs: Temperature 97.5 F Pulse Rate 62 Respiratory Rate 16 Blood Pressure 120/76 Pulse Oximetry 97 Oxygen Delivery Me thod Room Air Oxygen Flow Rate Fraction of Inspir ed Oxygen Hydration adequate: Yes Nausea and vomiting: No Pain level: 1 Mental status: Baseline
== END 2024-12-07 08:24 | disposition home or self-care (01) ==
PROVIDERS: Student in an Organized Health Care Education/Training Program; PCP Family Medicine; Visit Provider Student in an Organized Health Care Education/Training Program
PROC: 0DJ08ZZ Inspection of Upper Intestinal Tract, Via Natural or Artificial Opening Endoscopic (ICD-10-PCS; principal; 2024-12-07 08:00)
DX: R12 Heartburn (principal); K29.70 Gastritis, unspecified, without bleeding; I10 Essential (primary) hypertension; K21.9 Gastro-esophageal reflux disease without esophagitis; E66.01 Morbid (severe) obesity due to excess calories; Z68.34 Body mass index [BMI] 34.0-34.9, adult; F41.9 Anxiety disorder, unspecified; F17.220 Nicotine dependence, chewing tobacco, uncomplicated; K59.00 Constipation, unspecified
CPT/HCPCS: 43239; 81025; 88305; J2704; J7030

== ENCOUNTER → 2024-12-28 10:22 | Outpatient (BNVA) | payer MEDICARE, MEDICAID, SELFPAY | PROVIDERS: PCP Family Medicine; Visit Provider Student in an Organized Health Care Education/Training Program | DX: Z09 Encounter for follow-up examination after completed treatment for conditions other than malignant neoplasm (principal); R03.0 Elevated blood-pressure reading, without diagnosis of hypertension | CPT/HCPCS: 99213 ==

== ENCOUNTER → 2025-01-15 10:04 | Outpatient (BNVA) | payer MEDICARE, MEDICAID, SELFPAY | PROVIDERS: PCP Family Medicine; Visit Provider Family Medicine | DX: R10.11 Right upper quadrant pain (principal); R10.31 Right lower quadrant pain; R11.10 Vomiting, unspecified | CPT/HCPCS: 80053; 85025; 86003; 86008 ==

== ENCOUNTER → 2025-02-08 11:37 | Outpatient (BNVA) | payer MEDICARE, MEDICAID, SELFPAY | PROVIDERS: PCP Family Medicine; Visit Provider Family Medicine | DX: R10.11 Right upper quadrant pain (principal) | CPT/HCPCS: 80053; 85025; 86140 ==

== ENCOUNTER 2025-02-21 10:37 | Outpatient (CLI) | payer MEDICARE, MEDICAID, SELFPAY ==
--- NOTE | 2025-02-21 11:00 | CT_ITS ---
WS: [id number] CT ABDOMEN AND PELVIS NONCONTRAST HISTORY: periumbilical and RUQ pain after cholecystectomy., Gallbladder surgery December 2024. TECHNIQUE: Imaging performed through the abdomen and pelvis. Coronal and sagittal reformats are submitted. All CT scans at [facility] [place] use at least one of these dose optimization techniques: automated exposure control; mA and/or kV adjustment per patient size (includes targeted exams where dose is matched to clinical indication); or iterative reconstruction. DLP: 550.07 mGy.cm COMPARISON: 10/11/2024 Lower thorax: Lung bases are clear. Visualized heart is normal. No hiatal hernia. Liver: Normal size liver. No mass or bile duct dilatation. Gallbladder: Surgically absent. No cystic collection at the gallbladder fossa or adjacent to the liver. There is a focus of increased density in the gallbladder fossa closely associated with the common bile duct. This may be related to the surgical procedure. No dilatation of the common bile duct therefore this is probably not a stone. Pancreas: Normal size and attenuation. Normal pancreatic duct. No pancreatitis or mass. Spleen: Normal size with granulomata. Adrenal glands: Normal. No mass. Right kidney: Normal size kidney with no mass or hydronephrosis. Left kidney: Normal size kidney with no mass or hydronephrosis. Aorta: Normal abdominal aorta, no aneurysm or atherosclerosis. No free fluid, intraperitoneal air or significant lymphadenopathy. GI tract: Normal appearance of the stomach and small bowel. Normal appendix. Mild sigmoid diverticulosis without acute diverticulitis. No GI tract obstruction. Abdominal wall: There is a soft tissue tract through the abdominal wall from the prior surgery. There is a new well-circumscribed high density nodule measuring 8 mm in the RIGHT abdominal wall which may be is a small residual hematoma or a small cyst. Benign in appearance. Pelvis: No free fluid. Normal urinary bladder. Osseous structures: Unremarkable. CT/CT abdomen pelvis wo con [id number] IMPRESSION: 1. Status post cholecystectomy. 2. Tiny focus of increased density in the gallbladder fossa closely associated with the common bile duct is probably postsurgical. The common bile duct is no t dilated. 3. No apparent complications from the laparoscopic cholecystectomy are identif ied. 4. No GI tract obstruction. 5. No ascites or biloma.
== END 2025-02-21 10:38 | disposition home or self-care (01) ==
PROVIDERS: PCP Family Medicine; Visit Provider Family Medicine
DX: R10.33 Periumbilical pain (principal); Z90.49 Acquired absence of other specified parts of digestive tract; K57.30 Diverticulosis of large intestine without perforation or abscess without bleeding; D73.89 Other diseases of spleen; R22.2 Localized swelling, mass and lump, trunk; L76.32 Postprocedural hematoma of skin and subcutaneous tissue following other procedure
CPT/HCPCS: 74176